=== PATIENT | male | born 1960 | race Hispanic/Latino ===

== ENCOUNTER 2018-02-11 07:19 | Day surgery (SDC) | payer MEDICARE, OTHER ==
[2018-02-10 09:19] VITALS: BMI 35.9
[2018-02-11] MEDS ORDERED: Lidocaine 2% Inj (20ml) ONE (10:08)
[2018-02-11] MEDS ORDERED: Heparin 2,000 ML IV ONE (10:09)
[2018-02-11] MEDS ORDERED: Iodixanol 320 MG/ML 100 ML BOTTLE IV ONE (10:10)
[2018-02-11] MEDS ORDERED: Iodixanol 320 MG/ML 200 ML BOTTLE IV ONE (10:10)
[2018-02-11] MEDS ORDERED: Iohexol 350mgl/ml 50 ML ONE (10:10)
[2018-02-11] MEDS ORDERED: Midazolam 2 MG/2 ML VIAL ONE ×2 (10:23→10:26)
[2018-02-11] MEDS ORDERED: Sodium Chloride 0.9% 1,000 ML IV SCH (10:45)
[2018-02-11 12:08] VITALS: RESP 16; TEMP 97.4
--- NOTE | 2018-02-11 12:40 | CARDCATH ---
PROCEDURE DATE: 02/11/2018 PROCEDURES: 1. Selective left and right coronary angiography. 2. Right femoral arteriography. 3. Angio-Seal deployment. HISTORY: This is a 57-year-old male with history of hypertension, diabetes, and family history of premature heart disease, who underwent cardiac catheterization for evaluation of chest discomfort. INDICATION: As above. FINDINGS: HEMODYNAMICS: The aortic pressure was 120/76, the left ventricular pressure 120/15. CORONARY ANATOMY: 1. The left mainstem was normal. 2. The left anterior descending artery and its branches had minimal irregularities. 3. The left circumflex artery and its branches were normal. 4. The right coronary artery was dominant and normal. LEFT VENTRICULOGRAPHY: A hand injection was performed in the left ventricle revealing normal wall motion with ejection fraction of 55%. There was no aortic valve gradient noted on catheter pull back. Mitral regurgitation was not assessed. RIGHT FEMORAL ARTERIOGRAPHY: The right femoral arteriogram was performed in the MANUEL projection. This revealed no evidence of significant disease. The level of puncture was appropriate. The puncture site was then closed with deployment of an Angio-Seal device. CONCLUSION: 1. No evidence of significant obstructive coronary artery disease. 2. Normal left ventricular systolic function. RECOMMENDATIONS: Continue risk factor control as advised. A workup for noncardiac causes of chest pain can be considered. Lito Medrano MD cc: Chong Bhatti MD
[2018-02-11 13:21] VITALS: O2SAT 98
[2018-02-11 14:48] VITALS: BP 148/80; PULSE 70
[2018-02-11] MEDS ORDERED: Iohexol 350 MG/100 ML VIAL ONE (14:49)
== END 2018-02-11 14:40 | disposition home or self-care (01) ==
LOC: CATH 07:19
PROVIDERS: ATTEND Internal Medicine Cardiovascular Disease
DX: I25.10 Atherosclerotic heart disease of native coronary artery without angina pectoris (principal); I10 Essential (primary) hypertension; E11.9 Type 2 diabetes mellitus without complications; Z82.49 Family history of ischemic heart disease and other diseases of the circulatory system; E66.9 Obesity, unspecified; Z68.35 Body mass index [BMI] 35.0-35.9, adult
CPT/HCPCS: 36415; 86850; 86900; 93458; 99152; 99153; C1760; C1769; C2629; J1644; J2250; J3010; J7030; Q9966; Q9967